=== PATIENT | male | born 1965 | race Hispanic/Latino ===

== ENCOUNTER 2017-06-10 06:56 | Day surgery (SDC) | payer OTHER ==
[2017-06-10] MEDS ORDERED: WATER FOR IRRIG STERILE IR ONE (07:23)
--- NOTE | 2017-06-10 07:33 | Anesthesia Consultation ---
Anesthesia Consult and Med Hx Date of service: 06/10/17 - Airway ROM Head & Neck: Adequate Mental/Hyoid Distance: Adequate Mallampati Class: Class IV Intubation Access Assessment: Possibly Difficult - Pre-Operative Health Status ASA Pre-Surgery Classification: ASA3 Proposed Anesthetic Plan: General - Pulmonary Hx Sleep Apnea: Yes - Cardiovascular System Hx Hypertension: Yes - Central Nervous System Hx Psychiatric Problems: Yes - Gastrointestinal Hx Ulcer: Yes (PEPTIC ULCER/ 1995) - Other Systems Hx Cancer: No Hx Obesity: Yes - Additional Comments Anesthesia Medical History Comments: NAC.
--- NOTE | 2017-06-10 07:34 | Anesthesia Day of Surgery ---
Anesthesia Day of Surgery - Day of Surgery Patient Examined: Yes Patient H&P Reviewed: Yes Patient is NPO: Yes
[2017-06-10] MEDS ORDERED: NACL 0.9% 1000 ML 1,000 ML IV SCH (08:00)
[2017-06-10] MEDS ORDERED: DIPRIVAN 10 MG/ML IV ONE ×2 (08:14)
[2017-06-10 09:48] VITALS: BP 129/74
--- NOTE | 2017-06-19 10:05 | Procedure Note ---
Date of procedure: 06/10/17 Pre-op diagnosis: screening colonoscopy Post-op diagnosis: same Procedure: Colonoscopy to cecum Description of procedure: Patient was placed in the left lateral decubitus position. He was sedated intravenously by anesthesia. The colonoscope was inserted into the patient's rectum and the scope advanced retrograde while directly visualizing his colonic lumen. Once the cecum was identified, the scope was slowly withdrawn with careful circumferential visualization of his colonic mucosa. A retroflexed view of the distal rectum was also performed. The prep was adequate. No polyps, tumors, AVMs, ulcerations or diverticula were noted. Insufflated air was aspirated from his rectum and the scope withdrawn. Patient tolerated the procedure well. He was recovered in the GI suite. Anesthesia: MAC Surgeon: LEROY FRANCIS Estimated blood loss: none Pathology: none Condition: stable Disposition: same day
== END 2017-06-10 06:57 | disposition home or self-care (01) ==
LOC: GIO 06:56
PROVIDERS: ATTEND Surgery
DX: Z12.11 Encounter for screening for malignant neoplasm of colon (principal); I10 Essential (primary) hypertension; G47.30 Sleep apnea, unspecified; K27.9 Peptic ulcer, site unspecified, unspecified as acute or chronic, without hemorrhage or perforation; E78.5 Hyperlipidemia, unspecified; F32.9 Major depressive disorder, single episode, unspecified; Z80.0 Family history of malignant neoplasm of digestive organs
CPT/HCPCS: 45378; J2704; J7030

== ENCOUNTER 2017-06-11 05:51 | Day surgery (SDC) | payer OTHER ==
[2017-06-11] MEDS ORDERED: VERSED IV NR (06:00)
[2017-06-11] MEDS ORDERED: NACL 0.9% 1000 ML 1,000 ML IV SCH (06:00)
[2017-06-11] MEDS ORDERED: PEPCID PO NR (06:00)
[2017-06-11] MEDS ORDERED: NACL BACTERIOSTATIC INFILTRATI ONE (06:35)
[2017-06-11] MEDS ORDERED: MARCAINE 0.25% INFILTRATI ONE ×3 (06:46→08:01)
[2017-06-11] MEDS ORDERED: MARCAINE 0.5% 0 ML INFILTRATI ONE (06:46)
--- NOTE | 2017-06-11 06:52 | Anesthesia Consultation ---
Anesthesia Consult and Med Hx Date of service: 06/11/17 - Airway Anesthetic Teeth Evaluation: Good ROM Head & Neck: Adequate Mallampati Class: Class II Intubation Access Assessment: Probably Good - Pulmonary Exam CTA: Yes - Pre-Operative Health Status ASA Pre-Surgery Classification: ASA2 Proposed Anesthetic Plan: General (use CPAP) - Pulmonary Hx Sleep Apnea: Yes - Cardiovascular System Hx Hypertension: Yes - Central Nervous System Hx Psychiatric Problems: Yes - Gastrointestinal Hx Ulcer: Yes - Other Systems Hx Alcohol Use: No Hx Substance Use: No Hx Cancer: No Hx Obesity: Yes
--- NOTE | 2017-06-11 06:53 | Anesthesia Day of Surgery ---
Anesthesia Day of Surgery - Day of Surgery Patient H&P Reviewed: Yes Patient is NPO: Yes Beta Blockers: No Cardiac Clearance: No Pulmonary Clearance: No
[2017-06-11] MEDS ORDERED: XYLOCAINE MPF 2% ONE (07:12)
[2017-06-11] MEDS ORDERED: DILAUDID ONE (07:12)
[2017-06-11] MEDS ORDERED: ZOFRAN ONE (07:12)
[2017-06-11] MEDS ORDERED: DIPRIVAN 10 MG/ML IV ONE (07:12)
[2017-06-11] MEDS ORDERED: DECADRON ONE (07:12)
[2017-06-11] MEDS ORDERED: ZEMURON IV ONE (07:12)
[2017-06-11] MEDS ORDERED: HEPARIN SUB-Q NR (07:15)
[2017-06-11] MEDS ORDERED: PERCOCET 5/325 PO PRN (07:17)
[2017-06-11] MEDS ORDERED: ZOFRAN IV PRN (07:17)
[2017-06-11] MEDS ORDERED: ANCEF/STERILE WATER 2 GM/20 ML IV NR (08:00)
[2017-06-11] MEDS ORDERED: NACL 0.9% IR ONE (08:01)
[2017-06-11] MEDS ORDERED: ROBINUL ONE (08:20)
[2017-06-11] MEDS ORDERED: NEOSTIGMINE ONE (08:21)
[2017-06-11] MEDS ORDERED: PROAIR IH ONE (08:45)
--- NOTE | 2017-06-11 09:11 | Post Anesthesia Evaluation ---
- Post Anesthesia Evaluation Patient Participated: Yes Airway Patent: Yes Stable Respiratory Function: Yes Nausea/Vomiting: No Temp > 96.8F: Yes Pain Manageable: Yes Adequeate Hydration: Yes Anesthesia Complications: No Block Receding Appropriately: Not Applicable Patient on Ventilator: No
[2017-06-11] MEDS: SUBLIMAZE IV PRN ×2 (09:38→09:45)
--- NOTE | 2017-06-11 10:31 | Post Operative Note ---
Pre-op diagnosis: Incarcerated ventral hernia Post-op diagnosis: same Findings: Incarcerated omentum Procedure: Open repair with medium Ventralex mesh Anesthesia: JAMES Surgeon: LEROY FRANCIS Estimated blood loss: minimal Pathology: none Condition: stable Disposition: PACU
[2017-06-11] MEDS ORDERED: PERCOCET 5/325 PO SCH (12:00)
[2017-06-11 14:22] VITALS: BP 131/71
--- NOTE | 2017-06-19 10:19 | Procedure Note ---
Date of procedure: 06/11/17 Pre-op diagnosis: incarcerated ventral hernia Post-op diagnosis: same Procedure: Open repair of incarcerated ventral hernia with ventralex mesh Description of procedure: Patient was placed supine on the operating room table. After adequate GETA, his abdomen was prepped and draped. Skin and subcutaneous tissue at the proposed incision were infiltrated with 5 mL of 0.5% Marcaine. A small skin incision was made. The hernia sac was immediately identified and this was dissected down to its fascial margins. The hernia sac was then incised and was found to contain incarcerated omentum. The omentum was freed up from the hernia sac and the omentum reduced back into the peritoneal cavity. The hernia sac was excised at the level of the fascia. The fascial defect measured about 2 cm. A medium piece of ventralex mesh was inserted into the peritoneal cavity and was appropriately positioned. The mesh was then secured to the fascia and the defect simultaneously closed with several interrupted sutures of 0 Ethibond. Periumbilical dermis was tacked down to the fascia with a single suture of 3-0 Vicryl. Skin was approximated with a running subcuticular suture of 4-0 Monocryl. A fluffed 2 x 2 was inserted into the umbilicus followed by a dry 4 x 4 and Tegaderm. Patient tolerated the procedure well. He was extubated in the operating room. He was taken to PACU in stable condition. Findings: Incarcerated omentum Anesthesia: GETA Surgeon: LEROY FRANCIS Estimated blood loss: minimal Pathology: none Condition: stable Disposition: PACU
== END 2017-06-11 11:25 | disposition home or self-care (01) ==
LOC: OR 05:51
PROVIDERS: ATTEND Surgery
DX: K43.6 Other and unspecified ventral hernia with obstruction, without gangrene (principal); E78.5 Hyperlipidemia, unspecified; I10 Essential (primary) hypertension; E66.9 Obesity, unspecified; G47.33 Obstructive sleep apnea (adult) (pediatric); F32.9 Major depressive disorder, single episode, unspecified; Z99.89 Dependence on other enabling machines and devices
CPT/HCPCS: 49561; 49568; C1781; J0690; J1100; J1170; J1644; J2250; J2405; J2704; J2710; J3010; J7030